=== PATIENT | female | born 1940 | race Caucasian/White ===

== ENCOUNTER 2016-04-14 21:38 | Emergency (ER) | payer MEDICARE ==
[2016-04-14 21:49] VITALS: BP 178/81
--- NOTE | 2016-04-14 22:19 | EDM.PDOC ---
ED HPI DIABETIC EMERGENCY - General Chief Complaint: Diabetic Complaint Stated Complaint: HIGH BLOOD SUGAR CHILLS VOMITING Time Seen by Provider: 04/14/16 22:19 - History of Present Illness INITIAL COMMENTS - FREE TEXT/NARRATIVE: 75-year-old female presents to the emergency room with nausea vomiting and elevated blood sugars. This started earlier today the patient would try and drink fluids and she would vomit them up. She does not have any abdominal pain she has not had a cough or congestion and she's not aware of any fevers or chills. She has not developed any diarrhea and certainly has had no constipation. Patient did not get her flu shot this year, however she meant to. Patient has noticed that her blood sugars have gone up prior to coming in her blood sugar was 199 this is as high as it's been all day. She is a little concerned that she hasn't been eating much better blood sugars are going up. The patient doesn't hurt anywhere she does not have any breathing difficulties or shortness of breath and certainly no chest pain. - Related Data Allergies/ADRs: Allergies Allergy/AdvReac Type Severity Reaction Status Date / Time alendronate sodium Allergy Vomiting Verified 04/14/16 21:46 [From Fosamax] Home Meds: Home Meds Aspirin 81 mg PO DAILY 04/14/16 [History] Cholecalciferol (Vitamin D3) [Vitamin D3] 1,000 unit PO DAILY 04/14/16 [History] Lisinopril 20 mg PO DAILY 04/14/16 [History] Multivitamin [Multivitamins] 1 tab PO DAILY 04/14/16 [History] Omeprazole 20 mg PO DAILY 04/14/16 [History] Rosuvastatin [Crestor] 20 mg PO DAILY 04/14/16 [History] glipiZIDE [Glipizide ER] 2.5 mg PO DAILY 04/14/16 [History] metFORMIN [Glucophage] 1,000 mg PO BID 04/14/16 [History] tiZANidine HCl [Tizanidine HCl] 2 mg PO ASDIRECTED PRN 04/14/16 [History] traMADol [Ultram] 50 mg PO ASDIRECTED PRN 04/14/16 [History] Nitrofurantoin Monohyd/M-Cryst [Macrobid 100 mg Capsule] 100 mg PO Q12H #13 capsule 04/15/16 [Rx] Past Medical History HEENT History: Reports: Cataract, Impaired vision Other HEENT History: Wears glasses Cardiovascular History: Reports: High cholesterol, Hypertension Gastrointestinal History: Reports: GERD 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 Denies: Chest pain, Dyspnea on exertion, Edema, Palpitations GI/Abdominal: Reports: Nausea, Vomiting. Denies: Abdominal pain, Constipation, Diarrhea : Reports: no symptoms Skin: Reports: no symptoms Neurological: Reports: no symptoms ED EXAM GENERAL NO PERIP PULSE - Physical Exam Exam: See Below Exam Limited By: No limitations General Appearance: alert, no apparent distress Eye Exam: bilateral eye: normal inspection Ears: normal external exam, normal canal, hearing grossly normal, normal TMs Nose: normal inspection, normal mucosa, no blood Throat/Mouth: Normal inspection, Normal lips, Normal teeth, Normal gums, Normal oropharynx, Normal voice, No airway compromise Head: atraumatic, normocephalic Neck: normal inspection, supple, non-tender, full range of motion. No: lymphadenopathy (L), lymphadenopathy (R) Respiratory/Chest: no respiratory distress, lungs clear, normal breath sounds Cardiovascular: regular rate, rhythm, no edema, no murmur GI/Abdominal: normal bowel sounds, soft, non tender Back Exam: normal inspection. No: CVA tenderness (L), CVA tenderness (R) Extremities: normal inspection, normal range of motion, non-tender Neurological: alert, oriented, normal cognition Skin Exam: Warm, Dry, Intact Course - Vital Signs Last Recorded V/S: Last Vital Signs Temp 35.9 C 04/14/16 21:47 Pulse 92 04/14/16 21:47 Resp 18 04/14/16 21:47 BP 178/81 H 04/14/16 21:47 Pulse Ox 99 04/14/16 21:47 - Orders/Labs/Meds Orders: Active Orders 24 hr Category Date Time Status EKG Documentation Completion [RC] STAT Care 04/14/16 22:38 Active CULTURE URINE [RM] Stat Lab 04/15/16 01:11 Uncollected Lactated Ringers [Ringers, Lactated] 1,000 ml Med 04/14/16 22:45 Active IV ASDIRECTED Medication Orders Lactated Ringer's (Ringers, Lactated) 1,000 mls @ 100 mls/hr IV ASDIRECTED LEXIS Labs: Laboratory Tests 04/14/16 04/14/16 04/14/16 Range/Units 21:48 22:48 22:48 WBC 10.19 H (3.98-10.04) K/mm3 RBC 5.20 (3.98-5.22) M/mm3 Hgb 13.5 (11.2-15.7) gm/L Hct 42.5 (34.1-44.9) % MCV 81.7 (79.4-94.8) fl MCH 26.0 (25.6-32.2) pg MCHC 31.8 L (32.2-35.5) g/dl RDW Std Deviation 43.3 (36.4-46.3) fL Plt Count 186 (182-369) K/mm3 MPV 10.8 (9.4-12.3) fl Neutrophils % (Manual) 88 H (40-60) % Band Neutrophils % 0 (0-10) % Lymphocytes % (Manual) 12 L (20-40) % Atypical Lymphs % 0 % Immat Monocytes % (Man) 0 Monocytes % (Manual) 0 L (2-10) % Eosinophils % (Manual) 0 L (0.7-5.8) % Basophils % (Manual) 0 L (0.1-1.2) Metamyelocytes % 0 Myelocytes % 0 Promyelocytes % 0 Blast Cells % 0 Plasma Cell % (Manual) 0 Nucleated RBCs 0.0 % Platelet Estimate Adequate RBC Morph Comment Normal Sodium 136 (136-145) mEq/L Potassium 4.1 (3.5-5.1) mEq/L Chloride 101 (98-107) mEq/L Carbon Dioxide 20 L (21-32) mEq/L Anion Gap 19.1 H (5-15) BUN 28 H (7-18) mg/dL Creatinine 1.0 (0.55-1.02) mg/dL Est Cr Clr Drug Dosing 42.62 mL/min Estimated GFR (MDRD) 54 (>60) mL/min BUN/Creatinine Ratio 28.0 H (14-18) Glucose 203 H (83-115) mg/dL POC Glucose 189 H (83-110) mg/dL Calcium 9.4 (8.5-10.1) mg/dL Total Bilirubin 0.5 (0.2-1.0) mg/dL AST 19 (15-37) U/L ALT 22 (14-59) U/L Alkaline Phosphatase 98 (46-116) U/L Total Protein 8.1 (6.4-8.2) g/dl Albumin 4.1 (3.4-5.0) g/dl Globulin 4.0 gm/dL Albumin/Globulin Ratio 1.0 (1-2) Urine Color (Yellow) Urine Appearance (Clear) Urine pH (5.0-8.0) Ur Specific [place] (1.005-1.030) Urine Protein (Negative) Urine Glucose (UA) (Negative) Urine Ketones (Negative) Urine Occult Blood (Negative) Urine Nitrite (Negative) Urine Bilirubin (Negative) Urine Urobilinogen (0.2-1.0) Ur Leukocyte Esterase (Negative) Urine RBC (0-5) /hpf Urine WBC (0-5) /hpf Ur Squamous Epith Cells (0-5) /hpf Urine Bacteria (FEW) /hpf Urine Mucus (FEW) /hpf 04/14/16 Range/Units 23:35 WBC (3.98-10.04) K/mm3 RBC (3.98-5.22) M/mm3 Hgb (11.2-15.7) gm/L Hct (34.1-44.9) % MCV (79.4-94.8) fl MCH (25.6-32.2) pg MCHC (32.2-35.5) g/dl RDW Std Deviation (36.4-46.3) fL Plt Count (182-369) K/mm3 MPV (9.4-12.3) fl Neutrophils % (Manual) (40-60) % Band Neutrophils % (0-10) % Lymphocytes % (Manual) (20-40) % Atypical Lymphs % % Immat Monocytes % (Man) Monocytes % (Manual) (2-10) % Eosinophils % (Manual) (0.7-5.8) % Basophils % (Manual) (0.1-1.2) Metamyelocytes % Myelocytes % Promyelocytes % Blast Cells % Plasma Cell % (Manual) Nucleated RBCs % Platelet Estimate RBC Morph Comment Sodium (136-145) mEq/L Potassium (3.5-5.1) mEq/L Chloride (98-107) mEq/L Carbon Dioxide (21-32) mEq/L Anion Gap (5-15) BUN (7-18) mg/dL Creatinine (0.55-1.02) mg/dL Est Cr Clr Drug Dosing mL/min Estimated GFR (MDRD) (>60) mL/min BUN/Creatinine Ratio (14-18) Glucose (83-115) mg/dL POC Glucose (83-110) mg/dL Calcium (8.5-10.1) mg/dL Total Bilirubin (0.2-1.0) mg/dL AST (15-37) U/L ALT (14-59) U/L Alkaline Phosphatase (46-116) U/L Total Protein (6.4-8.2) g/dl Albumin (3.4-5.0) g/dl Globulin gm/dL Albumin/Globulin Ratio (1-2) Urine Color Yellow (Yellow) Urine Appearance Clear (Clear) Urine pH 5.5 (5.0-8.0) Ur Specific [place] 1.015 (1.005-1.030) Urine Protein Negative (Negative) Urine Glucose (UA) Negative (Negative) Urine Ketones Negative (Negative) Urine Occult Blood Trace-lysed H (Negative) Urine Nitrite Negative (Negative) Urine Bilirubin Negative (Negative) Urine Urobilinogen 0.2 (0.2-1.0) Ur Leukocyte Esterase 1+ H (Negative) Urine RBC 0-5 (0-5) /hpf Urine WBC 10-20 H (0-5) /hpf Ur Squamous Epith Cells 0-5 (0-5) /hpf Urine Bacteria Few (FEW) /hpf Urine Mucus Few (FEW) /hpf Meds: Medications Generic Name Dose Route Start Last Admin Trade Name Freq PRN Reason Stop Dose Admin Lactated Ringer's 1,000 mls @ 100 mls/hr 04/14/16 22:45 Ringers, Lactated IV ASDIRECTED LEXIS Discontinued Medications Generic Name Dose Route Start Last Admin Trade Name Freq PRN Reason Stop Dose Admin Lactated Ringer's 500 mls @ 999 mls/hr 04/14/16 22:36 04/14/16 22:52 Ringers, Lactated IV 04/14/16 23:06 999 mls/hr .BOLUS ONE Administration Nitrofurantoin Macrocrystals 100 mg 04/15/16 01:11 Macrobid PO 04/15/16 01:12 ONETIME ONE Ondansetron HCl 4 mg 04/14/16 22:36 04/14/16 22:48 Zofran IVPUSH 04/14/16 22:37 4 mg ONETIME ONE Administration - Re-Assessments/Exams Free Text/Narrative Re-Assessment/Exam: patient is doing better after the Zofran her labs suggest that she is a little dehydrated she received a 500 cc bolus she received a half liter of lactated Ringer's as a bolus and did well with that she will receive another half liter bolus. We are waiting on her influenza screen and urinalysis. 04/15/16 01:12 influenza screen is negative urinalysis is suggestive of an early urinary tract infection. I discussed this with the patient am not convinced the UTI is causing her symptoms however have recommended that we treat her gastroenteritis with Zofran, she is in agreement to this. Have also recommended Macrobid for this early urinary tract infection. Departure - Departure Time of Disposition: 01:13 Disposition: Home, Self-Care 01 Clinical Impression: Gastroenteritis, UTI (urinary tract infection) Prescriptions: Nitrofurantoin Monohyd/M-Cryst [Macrobid 100 mg Capsule] 100 mg PO Q12H #13 capsule Forms: ED Department Discharge Additional Instructions: Return to the emergency room with any questions or problems. Return if getting worse or if not improving in 24 hours. Clear liquid diet for 12 hours then slowly advance as tolerated. It is important to really push the fluids. Check your blood sugars 4 times a day until you are feeling better. Then resume normal monitoring. You have been started on Macrodantin this is an antibiotic take twice daily until gone this is for the urinary tract infection. You have been given Zofran, this is an anti-nausea medication. He got this from the machine in the waiting room. It is 4 mg #10. Take one every 4-6 hours as needed for nausea and vomiting. This medication will dissolve under her on your tongue so you do not have to to swallow it. Followup with your regular physician in 2 days for recheck if needed. - My Orders Last 24 Hours: My Active Orders 04/14/16 22:38 EKG Documentation Completion [RC] STAT 04/14/16 22:45 Lactated Ringers [Ringers, Lactated] 1,000 ml IV ASDIRECTED 04/15/16 01:11 CULTURE URINE [RM] Stat - Assessment/Plan Last 24 Hours: My Active Orders 04/14/16 22:38 EKG Documentation Completion [RC] STAT 04/14/16 22:45 Lactated Ringers [Ringers, Lactated] 1,000 ml IV ASDIRECTED 04/15/16 01:11 CULTURE URINE [RM] Stat
[2016-04-14] MEDS ORDERED: Ondansetron 4 MG/2 ML SDV IVPUSH ONE (22:36)
[2016-04-14] MEDS ORDERED: Lactated Ringers 500 ML IV ONE (22:36)
[2016-04-14] MEDS ORDERED: Lactated Ringers 1,000 ML IV SCH (22:45)
[2016-04-15] MEDS ORDERED: Nitrofurantoin Monohydrate/Macrocrystalline 100 MG Cap PO ONE (01:11)
== END 2016-04-15 01:29 | disposition home or self-care (01) ==
LOC: JD.ED 21:38
DX: K52.9 Noninfective gastroenteritis and colitis, unspecified (principal); N39.0 Urinary tract infection, site not specified; E78.00 Pure hypercholesterolemia, unspecified; I10 Essential (primary) hypertension; E11.9 Type 2 diabetes mellitus without complications; Z88.8 Allergy status to other drugs, medicaments and biological substances; Z79.82 Long term (current) use of aspirin; Z79.899 Other long term (current) drug therapy; Z98.49 Cataract extraction status, unspecified eye
CPT/HCPCS: 36415; 80053; 81001; 82962; 85025; 87086; 87804; 93005; 96361; 96374; 99284; 99285-25; A9270-GY; J2405; J7120

== ENCOUNTER 2020-06-06 22:37 | Emergency (ER) | payer MEDICARE, OTHER ==
[2020-06-06 23:20] VITALS: BP 165/68; PULSE 86
--- NOTE | 2020-06-07 01:19 | EDM.PDOC ---
ED HPI GENERAL MEDICAL PROBLEM - General Chief Complaint: Cardiovascular Problem Stated Complaint: HIGH BLOOD PRESSURE Time Seen by Provider: 06/07/20 00:49 Source of Information: Reports: Patient History Limitations: Reports: No Limitations - History of Present Illness INITIAL COMMENTS - FREE TEXT/NARRATIVE: Mrs. Aldana is a very pleasant 79-year-old woman who now presents the ED concerned about elevated blood pressure. She states that she only checks her blood pressure if she is feeling dizzy, nauseated, or if she has a headache. For reasons unclear, she checked her blood pressure Thursday morning, 06/05/2020, despite feeling fine, however, she found it to be elevated. She checked it again around noon, again finding it to be elevated. Around 15:00 Thursday afternoon, she developed the sensation of vertigo. She checked her blood pressure 2 more times on Thursday, each time finding it to be elevated, with the highest reading 192/96. She states that she felt perfectly well yesterday, 04/08/2020, but, for reasons unclear, decided to come to the ED to get checked out. At no time did the patient have a headache, chest pain, nausea, or blurry vision. Here in the ED, the patient's initial BP was found to be elevated at 190/84, however, after a short time her BP was down to 165/68, without treatment. She is otherwise hemodynamically stable, afebrile, saturating 95% on room air. She appears to be quite comfortable. Other than her recent vertigo, the patient denies having a recent fever, chills, sore throat, ear pain, nasal or sinus congestion, cough, dyspnea, chest pain, palpitations, nausea, vomiting, constipation, diarrhea, abdominal pain, urinary symptoms, recent weight gain or weight loss, recent bloody bowel movements or black bowel movements, recent joint aches, headaches, or rashes. I reviewed the PMHx/PSHx/SocHx, which was reviewed with the patient by the RN. The patient's PCP is Dr. Daya Foley. - Related Data Allergies Allergy/AdvReac Type Severity Reaction Status Date / Time alendronate sodium Allergy Vomiting Verified 04/14/16 21:46 [From Fosamax] Home Meds: Home Meds Aspirin 81 mg PO DAILY 04/14/16 [History] Lisinopril 20 mg PO DAILY 04/14/16 [History] Multivitamin [Multivitamins] 1 tab PO DAILY 04/14/16 [History] metFORMIN [Glucophage] 1,000 mg PO BID 04/14/16 [History] tiZANidine HCl [Tizanidine HCl] 2 mg PO ASDIRECTED PRN 04/14/16 [History] traMADol [Ultram] 50 mg PO ASDIRECTED PRN 04/14/16 [History] Biotin [Hard Nails] 2,500 mcg PO DAILY 06/06/20 [History] Denosumab [Prolia] 60 mg .XX ASDIRECTED 06/06/20 [History] Esomeprazole [NexIUM] 20 mg PO DAILY 06/06/20 [History] atorvaSTATin [Lipitor] 20 mg PO BEDTIME 06/06/20 [History] Past Medical History HEENT History: Reports: Cataract, Impaired Vision Other HEENT History: Wears glasses Cardiovascular History: Reports: High Cholesterol, Hypertension Gastrointestinal History: Reports: GERD 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 ED EXAM, GENERAL - Physical Exam Exam: See Below Exam Limited By: No Limitations General Appearance: Alert, WD/WN, No Apparent Distress Eye Exam: Bilateral Eye: EOMI, Normal Inspection Ears: Normal External Exam, Hearing Loss Nose: Normal Inspection Throat/Mouth: Normal Inspection, Normal Lips, Normal Voice, No Airway Compromise Head: Atraumatic, Normocephalic Neck: Normal Inspection, Full Range of Motion Respiratory/Chest: No Respiratory Distress, Lungs Clear, Normal Breath Sounds, No Accessory Muscle Use Cardiovascular: Normal Peripheral Pulses, Regular Rate, Rhythm, No Gallop, No JVD, No Murmur, No Rub Peripheral Pulses: 3+: Radial (L), Radial (R) GI/Abdominal: Normal Bowel Sounds, Soft, Non-Tender, No Organomegaly, No Distention, No Abnormal Bruit, No Mass Back Exam: Normal Inspection, Full Range of Motion, NT Extremities: Normal Inspection, Normal Range of Motion, Normal Capillary Refill Neurological: Alert, Oriented, CN II-XII Intact, Normal Cognition, No Motor/Sensory Deficits Psychiatric: Normal Affect Skin Exam: Warm, Dry, Intact, Normal Color, No Rash #1 Interpretation EKG Date: 06/07/20 Time: 01:28 Rhythm: NSR Rate (Beats/Min): 80 [place]: Normal P-Wave: Present (? LAE) QRS: Normal ST-T: Normal QT: Normal Comparison: No Change (04/14/2016) Course - Vital Signs Last Recorded V/S: Last Vital Signs Temp 36.7 C 06/06/20 22:55 Pulse 86 06/06/20 23:19 Resp 16 06/06/20 22:55 BP 165/68 H 06/06/20 23:19 Pulse Ox 95 06/06/20 22:55 Orthostatic Blood Pressure [ 178/99 Standing] Orthostatic Blood Pressure [ 155/68 Supine] - Orders/Labs/Meds Labs: Laboratory Tests 06/07/20 06/07/20 Range/Units 01:28 01:28 WBC 6.86 (3.98-10.04) K/mm3 RBC 4.61 (3.98-5.22) M/mm3 Hgb 12.0 D (11.2-15.7) gm/dl Hct 38.3 (34.1-44.9) % MCV 83.1 (79.4-94.8) fl MCH 26.0 (25.6-32.2) pg MCHC 31.3 L (32.2-35.5) g/dl RDW Std Deviation 45.1 (36.4-46.3) fL Plt Count 195 (182-369) K/mm3 MPV 10.8 (9.4-12.3) fl Neutrophils % (Manual) 63 H (40-60) % Band Neutrophils % 0 (0-10) % Lymphocytes % (Manual) 30 (20-40) % Atypical Lymphs % 0 % Monocytes % (Manual) 7 (2-10) % Eosinophils % (Manual) 0 L (0.7-5.8) % Basophils % (Manual) 0 L (0.1-1.2) Platelet Estimate Adequate RBC Morph Comment Normal Sodium 142 (136-145) mEq/L Potassium 4.7 (3.5-5.1) mEq/L Chloride 105 (98-107) mEq/L Carbon Dioxide 26 (21-32) mEq/L Anion Gap 15.7 H (5-15) BUN 23 H (7-18) mg/dL Creatinine 0.8 (0.55-1.02) mg/dL Est Cr Clr Drug Dosing 50.05 mL/min Estimated GFR (MDRD) > 60 (>60) mL/min BUN/Creatinine Ratio 28.8 H (14-18) Glucose 125 H (83-115) mg/dL Calcium 9.6 (8.5-10.1) mg/dL Magnesium 2.3 (1.8-2.4) mg/dl Total Bilirubin 0.4 (0.2-1.0) mg/dL AST 19 (15-37) U/L ALT 21 (14-59) U/L Alkaline Phosphatase 87 (46-116) U/L Troponin I < 0.017 (0.00-0.056) ng/mL Total Protein 7.0 (6.4-8.2) g/dl Albumin 3.5 (3.4-5.0) g/dl Globulin 3.5 gm/dL Albumin/Globulin Ratio 1.0 (1-2) - Re-Assessments/Exams Free Text/Narrative Re-Assessment/Exam: 06/07/20 01:17 As above, the patient started checking her blood pressure Thursday morning, then developed vertigo Thursday afternoon. She continued to check her blood pressure, finding it to be as high as 192/96 Thursday evening. She felt much better yesterday, Thursday, but still came in this morning to be evaluated. Her initial BP was found to be elevated at 190/84, but went down to 165/68 without any treatment. Her physical exam, including her neurologic exam, is completely normal. I have ordered a work-up that includes orthostatics, several blood tests, and an ECG. 06/07/20 02:29 The patient is not orthostatic. Her CBC is unremarkable. Her CMP is remarkable for an anion gap slightly elevated at 15.7, but with a bicarbonate normal at 26. Her BUN is slightly elevated at 23, with a Cr normal at 0.8, and mild hyperglycemia of 125, with the remainder of her CMP being unremarkable. Her magnesium level is within normal limits at 2.3. Her troponin is undetectably low. 06/07/20 02:47 Test results discussed with the patient. As above, today's work-up is entirely unremarkable. I will discharge her home with the recommendation that she check her blood pressure only 2-3 times a week, at different times of the day, and only under restful conditions. She should write the numbers down, and not worry about them, then bring those numbers with her when she follows up with her PCP. Departure - Departure Time of Disposition: 02:48 Disposition: Home, Self-Care 01 Condition: Good Clinical Impression: Elevated blood pressure reading - Discharge Information *PRESCRIPTION DRUG MONITORING PROGRAM REVIEWED*: Not Applicable *COPY OF PRESCRIPTION DRUG MONITORING REPORT IN PATIENT [facility]: Not Applicable Instructions: Hypertension, Adult Referrals: Daya Foley MD [Ordering Only Provider] - Forms: ED Department Discharge Additional Instructions: You were seen in the emergency room after recording several elevated blood pressure readings, in the setting of feeling dizzy, nauseated, with a headache. Work-up in the ER included positional blood pressure checks, several blood tests, and an ECG. Your entire work-up was unremarkable. You are not dehydrated. You have not have a heart attack. Going forward, we recommend that you check your blood pressure only 2-3 times a week, at different times of the day, and only under restful conditions = you are sitting quietly for at least 5, and preferably 15 minutes, that the arm you are checking your blood pressure is supported and at the height of your heart, that you are not in pain, you are not sick, and you are not anxious. Write the numbers down, then present them to your doctor the next time you follow-up. We recommend that you continue to take your current medications as prescribed. If any other problems, please do not hesitate to return to the ER. Sepsis Event Note (ED) - Evaluation Sepsis Screening Result: No Definite Risk - Focused Exam Vital Signs: Vital Signs Temp Pulse Resp BP Pulse Ox 06/06/20 23:19 86 165/68 H 06/06/20 22:55 36.7 C 100 16 190/84 H 95
== END 2020-06-07 02:56 | disposition home or self-care (01) ==
LOC: JD.ED 22:37
DX: I10 Essential (primary) hypertension (principal); E78.00 Pure hypercholesterolemia, unspecified; K21.9 Gastro-esophageal reflux disease without esophagitis; E11.9 Type 2 diabetes mellitus without complications; Z88.8 Allergy status to other drugs, medicaments and biological substances; Z79.899 Other long term (current) drug therapy
CPT/HCPCS: 36415; 80053; 83735; 84484; 85007; 85027; 93005; 93010; 99283; 99283-25